=== PATIENT | female | born 1960 | race Caucasian/White ===

== ENCOUNTER → 2017-02-10 | Outpatient (CLI) | payer BC ==
--- NOTE | 2017-02-11 08:42 | RAD ---
EXAM DESCRIPTION: Knee,Left Complete CLINICAL HISTORY: PAIN IN LEFT KNEE COMPARISON: None. TECHNIQUE: 4 views FINDINGS: Mild loss of medial and lateral joint space is observed. Mild patellofemoral joint arthritis is observed. A small joint effusion is seen. No fracturing is detected. IMPRESSION: Mild degenerative changes are observed throughout the knee. Electronically signed by: Kenan Mathew MD 02/11/2017 8:42 AM CDT
--- NOTE | 2017-02-11 08:43 | RAD ---
EXAM DESCRIPTION: Pelvis CLINICAL HISTORY: PAIN IN LEFT HIP COMPARISON: None. TECHNIQUE: AP pelvis FINDINGS: Surgical clips are observed throughout the pelvis. The bony pelvis is intact. Proximal femurs are also intact. No fracturing is detected. IMPRESSION: Postsurgical changes are observed in the pelvis. Exam is otherwise unremarkable. Electronically signed by: Kenan Mathew MD 02/11/2017 8:43 AM CDT
== END | disposition home or self-care (01) ==
LOC: RAD 07:50
PROVIDERS: ATTEND Orthopaedic Surgery
DX: M25.562 Pain in left knee (principal); M25.552 Pain in left hip

== ENCOUNTER → 2017-03-31 | Outpatient (CLI) | payer BC ==
--- NOTE | 2017-04-01 11:43 | MAM ---
EXAM DESCRIPTION: Screening Mammogram,Bilateral CLINICAL HISTORY: 56 yearsFemaleSCREENING. Prior cyst aspiration, not malignant. "Fibrocystic breast". Currently on HRT.. COMPARISON: Digital screening bilateral examination 11/23/2014. Also 10/27/2013.. No prior reports available. TECHNIQUE: Bilateral CC and MLO projection full-field images, digital screening mammographic technique. CAD was utilized. FINDINGS: The breast parenchymal density pattern is: Heterogeneously dense breast tissue, which may obscure small masses. No skin thickening or nipple retraction bilateral axillary lymph nodes. Small parenchymal microcalcifications in the right breast. No focal, stellate mass or density, focal asymmetry , and no suspicious microcalcifications bilaterally. Mammographically stable, except for technique, compared to the study in October 2013. IMPRESSION: BI-RADS CATEGORY: 2 - BENIGN FINDINGS. Follow-up: Routine digital screening bilateral examination in one year interval from March 2017. According to the [employer], yearly mammograms are recommended starting at age 40 and continuing as long as a woman is in good health. Any breast change noted on a breast self-exam should be reported promptly to the patient's healthcare provider. Breast MRI is recommended for women with an approximately 20-25% or greater lifetime risk of breast cancer, including women with a strong family history of breast or ovarian cancer and women who have been treated for Hodgkin's disease. A negative mammographic report should not delay tissue diagnosis in patients with significant clinical history or physical findings. Extremely dense breast tissue limits the sensitivity of digital mammography. Electronically signed by: Himanshu Baig MD 04/01/2017 11:41 AM CDT Workstation: [id number]
== END | disposition home or self-care (01) ==
LOC: MAMMO 08:04
PROVIDERS: ATTEND Obstetrics & Gynecology
DX: Z12.31 Encounter for screening mammogram for malignant neoplasm of breast (principal)

== ENCOUNTER → 2018-02-20 | Outpatient (CLI) | payer BC | LOC: GMATM 12:24 | PROVIDERS: ATTEND Nurse Practitioner Family | DX: R50.9 Fever, unspecified (principal) ==

== ENCOUNTER 2018-02-21 20:11 | Emergency (ER) | payer BC ==
[2018-02-21 21:27] VITALS: TEMP 99.9; O2SAT 98
[2018-02-21] MEDS ORDERED: AZITHROMYCIN 250 MG TAB PO ONE (21:31)
[2018-02-21] MEDS ORDERED: LEVALBUTEROL NEBS 1.25 MG/3 ML VIAL NEB ONE (21:31)
[2018-02-21] MEDS ORDERED: IPRATROPIUM BROMIDE NEBS 0.5 MG/2.5 ML VIAL NEB ONE (21:31)
--- NOTE | 2018-02-21 22:05 | ED.PDOC ---
History of Present Illness - General Time Seen by Provider: 02/21/18 21:30 Source: patient Exam Limitations: no limitations - History of Present Illness Initial Comments: The patient is a 57-year-old female presenting to emergency room secondary to worsening cough and bronchitis symptoms. She was seen yesterday by her primary care doctor for the respiratory tract symptoms but also for UTI symptoms. She was given a steroid shot and started on ciprofloxacin. Respiratory symptoms have worsened but urinary symptoms have improved. she is no longer having any fevers. She does have something of a questionable history for asthma type symptoms in the past and is interested in an inhaler. Severity: moderate Improving Factors: nothing Worsening Factors: nothing Associated Symptoms: cough, malaise Home Medications: Ambulatory Orders Albuterol Inhaler [Ventolin Hfa Inhaler] 2 puff INH Q6H PRN #1 inh 02/21/18 Azithromycin 500 mg PO DAILY #5 tab 02/21/18 Review of Systems - Review of Systems Constitutional: States: malaise EENTM: States: nose congestion Respiratory: States: cough Cardiology: States: no symptoms reported Gastrointestinal/Abdominal: States: no symptoms reported Genitourinary: States: see HPI Musculoskeletal: States: no symptoms reported Skin: States: no symptoms reported Neurological: States: no symptoms reported Endocrine: States: no symptoms reported All other Systems: No Change from Baseline Physical Exam - Physical Exam General Appearance: Alert, Comfortable, No apparent distress Eye Exam: bilateral normal Ears, Nose, Throat: hearing grossly normal, nasal congestion Neck: full range of motion, supple Respiratory: no respiratory distress, no accessory muscle use, rhonchi - scattered, other - she also has a laryngitis Cardiovascular/Chest: normal peripheral pulses, regular rate, rhythm, no edema Peripheral Pulses: radial,right: 2+, radial,left: 2+, dorsalis pedis,right: 2+, dorsalis pedis,left: 2+ Gastrointestinal/Abdominal: non tender, soft Rectal Exam: deferred Back Exam: normal inspection, no CVA tenderness, no vertebral tenderness Extremity: normal range of motion, non-tender, normal inspection, no pedal edema , normal capillary refill Neurologic: synthetic chemist II-XII nml as tested, alert, normal mood/affect, oriented x 3 Skin Exam: normal color Comments: Vital Signs - 24 hr 02/21/18 21:25 Temperature 99.9 F H Pulse Rate [ 87 left hand] Respiratory 20 Rate Blood Pressure 152/92 [L ARM] O2 Sat by Pulse 98 Oximetry Progress - Progress Progress: 02/21/18 22:05 the patient is a 57-year-old female presenting essentially due to worsening bronchitis and laryngitis type symptoms. The patient is going to be placed on oral azithromycin in case this is being caused by an atypical bacterial infection. She is not in any respiratory distress. There is a question of some asthma type symptoms. The patient will be written for an albuterol inhaler for as needed use. She did seem to benefit from a bronchodilator here tonight. She is to continue her ciprofloxacin for her urinary tract infection. She may also benefit from the addition of scheduled anti-inflammatories such as Motrin or Aleve as well as a humidifier. She does need to keep herself well hydrated. ER warnings were given for any significant worsening. Departure - Departure Clinical Impression: Bronchitis Disposition: Discharge to Home or Self Care Condition: Fair Diet: regular diet Activity: increase activity as tolerated Referrals: Silver Tillman MD [Primary Care Provider] - 1-5 Days Prescriptions: Albuterol Inhaler [Ventolin Hfa Inhaler] 2 puff INH Q6H PRN #1 inh PRN Reason: Shortness Of Breath Azithromycin 500 mg PO DAILY #5 tab Home Medications: Ambulatory Orders Albuterol Inhaler [Ventolin Hfa Inhaler] 2 puff INH Q6H PRN #1 inh 02/21/18 Azithromycin 500 mg PO DAILY #5 tab 02/21/18 Additional Instructions: the patient is a 57-year-old female presenting essentially due to worsening bronchitis and laryngitis type symptoms. The patient is going to be placed on oral azithromycin in case this is being caused by an atypical bacterial infection. She is not in any respiratory distress. There is a question of some asthma type symptoms. The patient will be written for an albuterol inhaler for as needed use. She did seem to benefit from a bronchodilator here tonight. She is to continue her ciprofloxacin for her urinary tract infection. She may also benefit from the addition of scheduled anti-inflammatories such as Motrin or Aleve as well as a humidifier. She does need to keep herself well hydrated. ER warnings were given for any significant worsening.
[2018-02-21 23:17] VITALS: BP 148/65
== END 2018-02-21 22:30 | disposition home or self-care (01) ==
LOC: ER 20:11
DX: J40 Bronchitis, not specified as acute or chronic (principal)
CPT/HCPCS: J7614; J7644; Q0144

== ENCOUNTER 2018-02-22 07:49 | Emergency (ER) | payer BC ==
[2018-02-22] MEDS ORDERED: SODIUM CHLORIDE 0.9% 1000ML 1,000 ML IVS ONE ×2 (08:09→09:21)
[2018-02-22] MEDS ORDERED: IPRATROPIUM/ALBUTEROL 3 ML VIAL NEB ONE ×2 (08:10→09:32)
--- NOTE | 2018-02-22 08:14 | ED.PDOC ---
History of Present Illness - General Chief Complaint: Respiratory Problem Stated Complaint: cough, fever Time Seen by Provider: 02/22/18 08:08 Source: patient, family Exam Limitations: no limitations - History of Present Illness Timing/Duration: getting worse, other - 4 days Cough Quality/Degree: severe, dry cough Possible Cause: unknown cause Improving Factors: nothing Worsening Factors: nothing Associated Symptoms: chest pain/soreness, cough, fever/chills, headache, muscle aches, shortness of breath, other - nausea Respiratory Risk Factors: no cause identified Allergies/Adverse Reactions: Allergies NO KNOWN ALLERGY Allergy (Verified 02/21/18 22:43) Home Medications: Ambulatory Orders Albuterol Inhaler [Ventolin Hfa Inhaler] 2 puff INH Q6H PRN #1 inh 02/21/18 Azithromycin 500 mg PO DAILY #5 tab 02/21/18 Ondansetron [Zofran Odt] 4 mg PO Q6HR PRN #15 tab 02/22/18 predniSONE 20 mg PO BID #10 tab 02/22/18 Review of Systems - Review of Systems Constitutional: States: see HPI, chills, fever, malaise, weakness EENTM: States: nose congestion Respiratory: States: cough, short of breath Cardiology: States: no symptoms reported Gastrointestinal/Abdominal: States: nausea. Denies: abdominal pain, vomiting Genitourinary: States: no symptoms reported Musculoskeletal: States: muscle pain Skin: States: no symptoms reported Neurological: States: headache, weakness Endocrine: States: no symptoms reported Hematologic/Lymphatic: States: no symptoms reported Past Medical History (General) - Patient Medical History Hx Seizures: No Hx Stroke: No Hx Dementia: No Hx Asthma: No Hx of COPD: No Hx Cardiac Disorders: No Hx Congestive Heart Failure: No Hx Pacemaker: No Hx Hypertension: No Hx Thyroid Disease: No Hx Diabetes: No Hx Gastroesophageal Reflux: No Hx Renal Disease: No Hx of HIV: No Hx MRSA: No - Vaccination History Hx Tetanus, Diphtheria Vaccination: Yes Hx Influenza Vaccination: No Hx Pneumococcal Vaccination: No - Social History Hx Tobacco Use: No Family Medical History - Family History Mother Family History: Unknown Physical Exam - Physical Exam General Appearance: Alert, Lethargic ENT Exam: other - dry mucosa Neck: non-tender, full range of motion, supple Respiratory: rhonchi - R base worse than L, wheezing Cardiovascular/Chest: normal peripheral pulses, regular rate, rhythm, no edema Gastrointestinal/Abdominal: normal bowel sounds, soft, tenderness - diffusely Extremity: normal range of motion, non-tender, no pedal edema Neurologic: alert, normal mood/affect, oriented x 3 Skin Exam: normal color, warm/dry Departure - Departure Clinical Impression: Acute bronchospasm, Bronchitis Disposition: Discharge to Home or Self Care Condition: Fair Departure Forms: ED Discharge - Pt. Copy, Patient Portal Self Enrollment Referrals: Silver Tillman MD [Primary Care Provider] - 1-2 Weeks Prescriptions: Ondansetron [Zofran Odt] 4 mg PO Q6HR PRN #15 tab PRN Reason: Nausea predniSONE 20 mg PO BID #10 tab Home Medications: Ambulatory Orders Albuterol Inhaler [Ventolin Hfa Inhaler] 2 puff INH Q6H PRN #1 inh 02/21/18 Azithromycin 500 mg PO DAILY #5 tab 02/21/18 Ondansetron [Zofran Odt] 4 mg PO Q6HR PRN #15 tab 02/22/18 predniSONE 20 mg PO BID #10 tab 18
--- NOTE | 2018-02-22 09:03 | RAD ---
EXAM: Chest,1 View CLINICAL INDICATION: 57-year-old female with cough. TECHNIQUE: Single view, AP portable chest was obtained. COMPARISON: Due to downtime, no prior images are available for comparison. If a comparison is requested, an addendum may be made. FINDINGS: Unremarkable cardiac and mediastinal silhouette. Heart size is normal. Lungs are clear without focal opacity, pneumothorax or pleural effusions. Slightly hazy appearance of the lung bases secondary to overlying patient soft tissue. When patient is clinically able, follow-up evaluation with upright and PA and lateral radiography may be considered. The visualized bones are within normal limits. IMPRESSION: 1. No acute cardiopulmonary abnormalities. 2. Slightly hazy appearance of the lung bases secondary to overlying patient soft tissue. When patient is clinically able, follow-up evaluation with upright and PA and lateral radiography may be considered. Electronically signed by: Carri Martinez MD 02/22/2018 9:02 AM CDT
[2018-02-22] MEDS ORDERED: IBUPROFEN 200 MG TAB ONE (09:12)
[2018-02-22] MEDS ORDERED: IBUPROFEN 200 MG TAB PO ONE (09:14)
[2018-02-22] MEDS ORDERED: ONDANSETRON ODT 8 MG TAB SL ONE (09:19)
[2018-02-22] MEDS ORDERED: ONDANSETRON ODT 8 MG TAB ONE (09:20)
[2018-02-22] MEDS ORDERED: ONDANSETRON ODT 8 MG TAB SL PRN (09:21)
[2018-02-22] MEDS ORDERED: ALBUTEROL SULFATE 2.5 MG/3 ML VIAL NEB ONE ×6 (11:12→11:20)
[2018-02-22] MEDS ORDERED: SODIUM CHL 0.9% 50ML VIAL 12 ML, ALBUTEROL SULFATE NEBS 7.5 MG NEB ONE ×4 (11:12→11:13)
[2018-02-22] MEDS ORDERED: SODIUM CHLORIDE 0.9% 50 ML VIAL ONE (11:14)
[2018-02-22] MEDS ORDERED: ACETAMINOPHEN 500 MG TAB PO ONE (13:29)
[2018-02-22] MEDS ORDERED: methylPREDNISolone SODIUM SUC 125 MG/2 ML VIAL IV ONE (13:29)
[2018-02-22 15:04] VITALS: TEMP 100.3; O2SAT 91
[2018-02-22 15:07] VITALS: BP 121/68
== END 2018-02-22 14:05 | disposition home or self-care (01) ==
LOC: ER 07:49
DX: J20.9 Acute bronchitis, unspecified (principal)
CPT/HCPCS: 36415; 36600; 71045; 80053; 82803; 82805; 85025; 94640; 94644; J2930; J7030; J7611; J7620

== ENCOUNTER → 2018-08-31 | Outpatient (CLI) | payer BC ==
--- NOTE | 2018-09-01 14:03 | MAM ---
EXAM DESCRIPTION: 3D Screening BILATERAL : Digital Mammography. CLINICAL HISTORY: 57 years Female ANNUAL SCREENING . No complaints. No personal or family history of breast cancer. Childbirth. Hysterectomy 14 years ago. HRT less than 5 years ago. Prior cyst aspiration and biopsy left breast. Lifetime risk of developing breast cancer (Tyrer-Cuzick model)(%): 9.5. COMPARISON: 2-D digital screening bilateral mammography 03/31/2017. TECHNIQUE: Bilateral CC and MLO projection full-field images, digital tomosynthesis mammographic technique. Bilateral digital 2-D full-field MLO images. CAD not available for tomosynthesis or 2-D images. FINDINGS: The breast parenchymal density pattern is: Heterogeneously dense breast tissue, which may obscure small masses. No skin thickening or nipple retraction. Bilateral axillary lymph nodes. Bilateral solitary microcalcifications, more numerous within the dense fibroglandular tissues bilaterally. No new focal, stellate mass or density, focal asymmetry , and no suspicious microcalcifications bilaterally. Stable mammograms compared to prior study. Taking into account, differences in mammographic technique. IMPRESSION: Benign exam. BIRAD CATEGORY: 2 BENIGN FINDINGS. RECOMMENDATIONS: FOLLOW UP: Routine digital bilateral mammographic screening, one year interval from August 2018. Written communication explaining the IMPRESSION and follow-up, will be mailed to the patient and referring health care provider. According to the [employer], yearly mammograms are recommended starting at age 40 and continuing as long as a woman is in good health. Any breast change noted on a breast self-exam should be reported promptly to the patient's healthcare provider. Breast MRI is recommended for women with an approximately 20-25% or greater lifetime risk of breast cancer, including women with a strong family history of breast or ovarian cancer and women who have been treated for Hodgkin's disease. A negative mammographic report should not delay tissue diagnosis in patients with significant clinical history or physical findings. Extremely dense breast tissue limits the sensitivity of digital mammography. Electronically signed by: Himanshu Baig MD 09/01/2018 2:02 PM LAPPING MACHINE OPERATOR
== END ==
LOC: MAMMO 08:00
PROVIDERS: ATTEND Obstetrics & Gynecology
DX: Z12.31 Encounter for screening mammogram for malignant neoplasm of breast (principal)

== ENCOUNTER 2018-12-06 02:18 | Emergency (ER) | payer BC ==
[2018-12-06 02:34] VITALS: TEMP 97.5
--- NOTE | 2018-12-06 03:56 | RAD ---
CLINICAL HISTORY: coughing, right rib pain COMPARISON: February 22, 2018. TECHNIQUE: XR CHEST 2 VIEWS 12/06/2018 2:34 AM CDT FINDINGS: Cardiac silhouette is normal in size. Lungs are clear without consolidation, atelectasis, mass or edema. There is no pleural effusion. There is no pneumothorax. There are no acute osseous findings. IMPRESSION: Clear lungs. Electronically signed by: Bora Mclean MD 12/06/2018 3:52 AM CDT
[2018-12-06] MEDS ORDERED: MORPHINE SULFATE INJ 10 MG/ML VIAL IV ONE (04:10)
[2018-12-06] MEDS ORDERED: ONDANSETRON INJ 4 MG/2 ML VIAL IV ONE (04:10)
[2018-12-06] MEDS ORDERED: SODIUM CHLORIDE 0.9% 250ML 250 ML ONE (04:48)
[2018-12-06] MEDS ORDERED: SODIUM CHLORIDE 0.9% 250ML 250 ML IVS ONE (05:00)
[2018-12-06 05:41] VITALS: O2SAT 97
--- NOTE | 2018-12-06 06:05 | CT ---
EXAM: CT chest angiogram with contrast. INDICATION: Chest pain. TECHNIQUE: Contiguous axial CT images of the chest. Intravenous contrast: Present. Protocol: Pulmonary embolus (PE) protocol angiogram. Reformats: MIPs and MPRs created and utilized. DLP 516 mGy-cm. This exam was performed according to our departmental dose-optimization program, which includes automated exposure control, adjustment of the mA and/or kV according to patient size and/or use of iterative reconstruction technique. Note: LV=left ventricle. RV=right ventricle. COMPARISON: None. FINDINGS: Upper abdomen: Partially imaged. Thoracic aorta: Unremarkable. Heart: No right atrial thrombus. RV/LV ratio: Within normal limits. Pulmonary arteries: Technical: Adequate opacification to the level of the segmental vessels. Pulmonary embolus: No low-density filling defect to suggest acute PE. Overall embolic burden: None. Mediastinum: No pathologic sized middle mediastinal lymphadenopathy. Tracheobronchial tree: Unremarkable. Lungs: Lobar consolidation: Negative. Pleural effusion: Negative. Pneumothorax: Negative. Other: Negative. Bones: Unremarkable. IMPRESSION: 1. No CT evidence of acute PE. Electronically signed by: Perez Haney MD 12/06/2018 6:01 AM CDT Workstation: [id number]
--- NOTE | 2018-12-06 06:19 | ED.PDOC ---
History of Present Illness - General Chief Complaint: Respiratory Problem Stated Complaint: right rib pain, coughing Time Seen by Provider: 12/06/18 03:52 Source: patient, Vital Signs reviewed Exam Limitations: no limitations - History of Present Illness Initial Comments: c/o pain to the right scapular tip region that woke her at about midnight. No previous episodes, trauma, fever or dyspnea. Mild cough. Was fine yesterday. Worked out in the yard. The pain is following the path of an intercostal muscle to under the right breast. No rash. Severity: moderate Improving Factors: nothing Worsening Factors: movement, other - deep breath Allergies/Adverse Reactions: Allergies NO KNOWN ALLERGY Allergy (Verified 12/06/18 02:34) Home Medications: Ambulatory Orders Albuterol Inhaler [Ventolin Hfa Inhaler] 2 puff INH Q6H PRN #1 inh 02/21/18 Azithromycin 500 mg PO DAILY #5 tab 02/21/18 Ondansetron [Zofran Odt] 4 mg PO Q6HR PRN #15 tab 02/22/18 predniSONE 20 mg PO BID #10 tab 02/22/18 Acetaminophen W/ Codeine [Tylenol W/ CODEINE #3] 1 ea PO Q6HRS PRN 2 Days #6 12/06/18 Ondansetron Odt [Zofran ODT] 4 mg PO Q4HR PRN 1 Days #4 tab 12/06/18 Review of Systems - Review of Systems Constitutional: States: see HPI EENTM: States: no symptoms reported Respiratory: States: see HPI Cardiology: States: see HPI Gastrointestinal/Abdominal: States: nausea, vomiting - vomiting once on the way here as she says it was hurting so bad Genitourinary: States: no symptoms reported Musculoskeletal: States: see HPI, back pain Neurological: States: no symptoms reported Endocrine: States: no symptoms reported Hematologic/Lymphatic: States: no symptoms reported Past Medical History (General) - Patient Medical History Hx Seizures: No Hx Stroke: No Hx Dementia: No Hx Asthma: No Hx of COPD: No Hx Cardiac Disorders: No Hx Congestive Heart Failure: No Hx Pacemaker: No Hx Hypertension: No Hx Thyroid Disease: No Hx Diabetes: No Hx Gastroesophageal Reflux: No Hx Renal Disease: No Hx Cancer: No Hx of HIV: No Hx Hepatitis C: No Hx MRSA: No Hx Other PMH: Yes - Connective tissue disorder Surgical History: Hysterectomy - Vaccination History Hx Tetanus, Diphtheria Vaccination: No Hx Influenza Vaccination: No Hx Pneumococcal Vaccination: No - Social History Hx Tobacco Use: No Family Medical History - Family History Mother Family History: Unknown Physical Exam - Physical Exam General Appearance: Alert, Comfortable, No apparent distress Ears, Nose, Throat: hearing grossly normal Neck: non-tender, full range of motion, supple, normal inspection Respiratory: lungs clear, normal breath sounds, no respiratory distress, no accessory muscle use, other - tenderness over the right lower scapula; I did find an area that was point tender at least most of the time Cardiovascular/Chest: regular rate, rhythm, no edema, no JVD, no murmur Gastrointestinal/Abdominal: non tender, soft, no organomegaly Back Exam: normal inspection, no CVA tenderness, no vertebral tenderness - rotation slightly worsens the pain Extremity: normal range of motion, non-tender, normal inspection, no pedal edema, no calf tenderness, normal capillary refill Neurologic: procurement consultant II-XII nml as tested, no motor/sensory deficits, alert, normal mood/affect, oriented x 3 Skin Exam: normal color, warm/dry Progress - Progress Progress: 12/06/18 06:23 Says she feels much better. Her spouse is here. ASSESSMENT: 57 yo healthy female c/o periscapular pain radiating to the anterior right c hest. She has no h/o CAD or VTE. She has not been ill but did work in the yard yesterday. Her evaluation is essentially nml & she does have pain on palpation of the area. No rash as with shingles. I suspect a chest wall etiology as with muscle strain/spasm. PLAN: 1. Dischjarge 2. T3 3. Zofran 4. PCP f/u PSYCHOLOGICAL OPERATIONS OFFICER Aware was audited. - Results/Orders Results/Orders: WBC 9 D-dimer 0.62 Alk Phos 162 (slightly elevated) Troponin nml - EKG/XRAY/CT EKG: Sinus, no ST T wave changes - NSR @ 60; nml axis, intervals, QRS, ST seg ments & T waves; LAE XRAY: chest - normal CT Ordered: Yes - CTA nml Departure - Departure Clinical Impression: Chest pain in adult Back pain Qualifiers: Back pain location: thoracic back pain Chronicity: acute Back pain laterality: right Qualified Code(s): M54.6 - Pain in thoracic spine Time of Disposition: 06:33 Disposition: Discharge to Home or Self Care Condition: Good Departure Forms: ED Discharge - Pt. Copy, Patient Portal Self Enrollment Instructions: Upper Back Pain (DC), Chest Pain (DC) Referrals: Silver Tillman MD [Primary Care Provider] - 12/07/18 Prescriptions: Ondansetron Odt [Zofran ODT] 4 mg PO Q4HR PRN 1 Days #4 tab PRN Reason: Nausea Acetaminophen W/ Codeine [Tylenol W/ CODEINE #3] 1 ea PO Q6HRS PRN 2 Days #6 PRN Reason: Moderate Pain Home Medications: Ambulatory Orders Albuterol Inhaler [Ventolin Hfa Inhaler] 2 puff INH Q6H PRN #1 inh 02/21/18 Azithromycin 500 mg PO DAILY #5 tab 02/21/18 Ondansetron [Zofran Odt] 4 mg PO Q6HR PRN #15 tab 02/22/18 predniSONE 20 mg PO BID #10 tab 02/22/18 Acetaminophen W/ Codeine [Tylenol W/ CODEINE #3] 1 ea PO Q6HRS PRN 2 Days #6 12/06/18 Ondansetron Odt [Zofran ODT] 4 mg PO Q4HR PRN 1 Days #4 tab 12/06/18
[2018-12-06 06:23] VITALS: BP 121/68
== END 2018-12-06 06:45 | disposition home or self-care (01) ==
LOC: ER 02:18
DX: R07.9 Chest pain, unspecified (principal); M54.6 Pain in thoracic spine
CPT/HCPCS: 36415; 71046; 71275; 80053; 84484; 85025; 85379; 93005; J2270; J2405; J7050

== ENCOUNTER → 2019-04-29 | Outpatient (CLI) | payer BC ==
--- NOTE | 2019-04-29 11:24 | RAD ---
PROVIDED CLINICAL HISTORY/REASON FOR EXAM: M25.532 Findings: Number of images: 3 Location: Left wrist No acute fracture or dislocation. Joint spaces are maintained. Soft tissues are unremarkable. Subtle periosteal elevation along the ulnar aspect of the distal left radial metaphysis which likely reflects a healing nondisplaced fracture. IMPRESSION: Subtle periosteal elevation along the ulnar aspect of the distal left radial metaphysis which likely reflects a healing nondisplaced fracture. Recommend follow-up radiographs in six weeks. Electronically signed by: Eduardo Arthur MD 04/29/2019 11:23 AM CDT
== END ==
LOC: RAD 08:35
PROVIDERS: ATTEND Orthopaedic Surgery
DX: M25.532 Pain in left wrist (principal)

== ENCOUNTER → 2019-09-30 | Outpatient (CLI) | payer BC ==
--- NOTE | 2019-10-04 16:28 | MAM ---
EXAM DESCRIPTION: 3D Screening BILATERAL : Digital Mammography. CLINICAL HISTORY: 58 years Female ANNUAL SCREENING . No complaints or personal history of breast cancer. No family history of breast cancer. Menarche age 12. Childbirth age 28. Menopause age 43. HRT less than 5 years ago. Benign right breast cyst aspiration.. Lifetime risk of developing breast cancer (Tyrer-Cuzick model)(%): 10.7. COMPARISON: Bilateral screening digital breast tomosynthesis August 2018 and 2-D digital screening bilateral mammography March 2017. TECHNIQUE: Bilateral CC and MLO projection full-field images, digital tomosynthesis mammographic technique. Bilateral digital 2-D full-field MLO images. CAD not available for tomosynthesis or 2-D images. FINDINGS: The breast parenchymal density pattern is: Heterogeneously dense breast tissue, which may obscure small masses. No skin thickening or nipple retraction. Bilateral axillary lymph nodes. Bilateral solitary microcalcifications associated with the denser tissues. No new focal, stellate mass or density, focal asymmetry , and no suspicious microcalcifications bilaterally. Stable mammograms compared to prior study. IMPRESSION: Benign exam. BIRAD CATEGORY: 2 BENIGN FINDINGS. RECOMMENDATIONS: FOLLOW UP: Routine digital bilateral mammographic screening, one year interval from September 2019. Written communication explaining the IMPRESSION and follow-up, will be mailed to the patient and referring health care provider. According to the [employer], yearly mammograms are recommended starting at age 40 and continuing as long as a woman is in good health. Any breast change noted on a breast self-exam should be reported promptly to the patient's healthcare provider. Breast MRI is recommended for women with an approximately 20-25% or greater lifetime risk of breast cancer, including women with a strong family history of breast or ovarian cancer and women who have been treated for Hodgkin's disease. A negative mammographic report should not delay tissue diagnosis in patients with significant clinical history or physical findings. Extremely dense breast tissue limits the sensitivity of digital mammography. Electronically signed by: Himanshu Baig MD 10/04/2019 4:26 PM DRILLING MACHINE OPERATOR
== END ==
LOC: MAMMO 11:17
PROVIDERS: ATTEND General Practice
DX: Z12.31 Encounter for screening mammogram for malignant neoplasm of breast (principal)